=== PATIENT | female | born 1975 | race Caucasian/White ===

== ENCOUNTER 2024-10-24 18:06 | Emergency (ER) | payer MEDICAID, OTHER ==
[2024-10-24] MEDS: Sodium Chloride 0.9% 1,000 ML IV SCH (18:46)
[2024-10-24] MEDS: diphenhydrAMINE 50 MG/ML SDV IVPUSH ONE (18:46)
[2024-10-24] MEDS: Ketorolac 30 MG/ML SDV IVPUSH ONE (18:48)
[2024-10-24] MEDS: Sodium Chloride 0.9% 10 ML Syringe FLUSH PRN (18:50)
[2024-10-24] MEDS: Prochlorperazine 10 MG/2 ML SDV IVPUSH ONE (18:50)
[2024-10-24 18:53] VITALS: PULSE 75
[2024-10-24 19:59] VITALS: BP 113/74
== END 2024-10-24 19:59 | disposition home or self-care (01) ==
LOC: JP.ED 18:06
DX: G43.909 Migraine, unspecified, not intractable, without status migrainosus (principal); F17.210 Nicotine dependence, cigarettes, uncomplicated; Z79.899 Other long term (current) drug therapy
CPT/HCPCS: 96361; 96374; 96375; 99283; J0780; J1200; J1885; J7030